=== PATIENT | female | born 1980 | race Caucasian/White ===

== ENCOUNTER 2023-03-04 16:12 | Outpatient (CLI) | payer OTHER ==
--- NOTE | 2023-03-05 10:38 | Ultrasound Report ---
PROCEDURE: Pelvic w/Transvaginal INDICATIONS: AUB TECHNIQUE: Real-time scanning was performed of the pelvic organs, with image documentation. Additional endovagi nal scanning was necessary due to incomplete visualization of the adnexal and endometrial structures by transabdominal scanning. COMPARISON: None. FINDINGS: Uterus: Uterus is anteverted and normal in size at 10.0 x 5.2 x 5.7 cm. The myometrium is homogeneo us. The endometrium measures 6.0 mm in combined thickness. No uterine fibroids. Ovaries: The right ovary measures 2.8 x 2.4 x 1.7 cm, with a calculated ovarian volume of 6.2 cc. Th ere is a 1.3 cm corpus luteal cyst. There is a dominant follicle measuring 1.7 cm. The left ovary richard sures 2.3 x 1.5 x 2.0 cm, with a calculated ovarian volume of 3.4 cc. The ovaries have a normal sono graphic appearance. Less than 12 follicles can be seen in each ovary. No adnexal masses are seen. N o cystic lesions measuring greater than 3 cm. Other: No pathologic free abdominal or pelvic fluid. IMPRESSION: No cause for patient's symptom is identified. The endometrium is normal in thickness for a premenopau marla female. Reviewed by: Josafat Velasquez MD on 03/05/2023 10:37 AM PST Approved by: Josafat Velasquez MD on 03/05/2023 10:37 AM PST Station ID: [id number]
== END 2023-03-04 16:13 | disposition home or self-care (01) ==
LOC: DI 16:12
PROVIDERS: ATTEND Obstetrics & Gynecology
DX: N93.9 Abnormal uterine and vaginal bleeding, unspecified (principal)